=== PATIENT | female | born 1990 | race Caucasian/White ===

== ENCOUNTER → 2016-11-05 | Outpatient (CLI) | payer BC ==
--- NOTE | 2016-11-05 15:14 | CR ---
EXAMINATION: Two-view chest (PA and Lateral views). HISTORY: Cough. FINDINGS: The trachea is midline. The cardiomediastinal silhouette is within normal limits. No pulmonary infil trates, effusions or pneumothorax. Osseous structures appear unremarkable. IMPRESSION: No acute cardiopulmonary process.
== END ==
LOC: MW.CHFP 14:28
PROVIDERS: ATTEND Nurse Practitioner Family
DX: R50.9 Fever, unspecified (principal); R05 Cough
CPT/HCPCS: 36415; 71020; 71020-26; 85025; 87804

== ENCOUNTER 2021-06-10 06:33 | Day surgery (SDC) | payer BC ==
[2021-06-10] MEDS ORDERED: Ondansetron 4 MG/2 ML SDV IVPUSH PRN (07:27)
[2021-06-10] MEDS ORDERED: Naloxone 0.4 MG/ML SDV IVPUSH PRN (07:27)
[2021-06-10] MEDS ORDERED: HYDROmorphone 1 MG/ML Syringe IVPUSH PRN (07:27)
[2021-06-10] MEDS ORDERED: Morphine 2 MG/ML SYRINGE IVPUSH PRN (07:27)
[2021-06-10] MEDS ORDERED: Albuterol 0.083% 2.5 MG/3 ML Neb Soln NEB PRN (07:27)
[2021-06-10] MEDS ORDERED: Metoclopramide 10 MG/2 ML SDV IVPUSH PRN (07:27)
--- NOTE | 2021-06-10 07:32 | PCM.PREANE ---
Preanesthetic Assessment - Anesthesia/Transfusion/Family Hx Anesthesia History: Prior Anesthesia Without Reaction Other Type of Anesthesia Reaction Comment: "I wake up shaking" Family History of Anesthesia Reaction: No Transfusion History: No Prior Transfusion(s) - Review of Systems General: No Symptoms Pulmonary: No Symptoms Cardiovascular: No Symptoms Gastrointestinal: No Symptoms Neurological: Other (Back Pain) Other: Reports: None - Physical Assessment NPO Status Date: 06/10/21 NPO Status Time: 00:00 Vital Signs: Last Vital Signs Temp 98.2 F 06/10/21 06:50 Pulse 96 06/10/21 06:50 Resp 16 06/10/21 06:50 BP 138/83 06/10/21 06:50 Pulse Ox 100 06/10/21 06:50 Height: 5 ft 7.5 in Weight: 198 lb ASA Class: 2 Mental Status: Alert & Oriented x3 Airway Class: Mallampati = 2 Dentition: Reports: Normal Dentition Thyro-Mental Finger Breadths: 3 Mouth Opening Finger Breadths: 3 ROM/Head Extension: Full Lungs: Clear to Auscultation, Normal Respiratory Effort Cardiovascular: Regular Rate, Regular Rhythm - Allergies Allergies/Adverse Reactions: Allergies Allergy/AdvReac Type Severity Reaction Status Date / Time black elderberry Allergy "dehydration Uncoded 05/02/21 12:37 & weakness" - Acknowledgements Anesthesia Type Planned: General Anesthesia Pt an Appropriate Candidate for the Planned Anesthesia: Yes Alternatives and Risks of Anesthesia Discussed w Pt/Guardian: Yes Pt/Guardian Understands and Agrees with Anesthesia Plan: Yes PreAnesthesia Questionnaire - Past Health History Medical/Surgical History: Denies Medical/Surgical History HEENT History: Reports: None Cardiovascular History: Reports: None Respiratory History: Reports: None Gastrointestinal History: Reports: None Genitourinary History: Reports: None 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: Musculoskeletal History: Reports: Back Pain, Chronic Neurological History: Reports: None Psychiatric History: Reports: None Endocrine/Metabolic History: Reports: Obesity/BMI 30+ Hematologic History: Reports: None Immunologic History: Reports: None Oncologic (Cancer) History: Reports: None Dermatologic History: Reports: None - Past Surgical History Head Surgeries/Procedures: Reports: None HEENT Surgical History: Reports: None Cardiovascular Surgical History: Reports: None Respiratory Surgical History: Reports: None GI Surgical History: Reports: None Female Surgical History: Reports: None Endocrine Surgical History: Reports: None Neurological Surgical History: Reports: None Musculoskeletal Surgical History: Reports: Arthroscopic Knee Oncologic Surgical History: Reports: None Dermatological Surgical History: Reports: None - SUBSTANCE USE Tobacco Use Status *Q: Former Tobacco User Tobacco Use Within Last Twelve Months: No - HOME MEDS Home Medications: Home Meds Level Thrive 1 dose .ROUTE ASDIRECTED 05/02/21 [History] levonorgestreL [Mirena] 1 device IUTERINE ONETIME 06/04/21 [History] - CURRENT (IN HOUSE) MEDS Current Meds: Current Medications Albuterol (Albuterol 0.083% 2.5 Mg/3 Ml Neb Soln) 2.5 mg NEB ONETIME PRN PRN Reason: Wheezing Droperidol (Droperidol 5 Mg/2 Ml Sdv) 0.625 mg IVPUSH ONETIME PRN PRN Reason: Nausea/Vomiting Fentanyl (Fentanyl 100 Mcg/2 Ml Sdv) 50 mcg IVPUSH Q5M PRN PRN Reason: Pain (mild 1-3) Hydromorphone HCl (Hydromorphone 1 Mg/Ml Syringe) 1 mg IVPUSH Q10M PRN PRN Reason: Pain (moderate 4-6) Metoclopramide HCl (Metoclopramide 10 Mg/2 Ml Sdv) 10 mg IVPUSH ONETIME PRN PRN Reason: Nausea/Vomiting Morphine Sulfate (Morphine 4 Mg/Ml Vial) 2 mg IVPUSH Q10M PRN PRN Reason: Pain (severe 7-10) Naloxone HCl (Naloxone 0.4 Mg/Ml Sdv) 0.1 mg IVPUSH ASDIRECTED PRN PRN Reason: Respiratory Depression Ondansetron HCl (Ondansetron 4 Mg/2 Ml Sdv) 4 mg IVPUSH ONETIME PRN PRN Reason: Nausea/Vomiting
[2021-06-10] MEDS ORDERED: Propofol 200 MG/20 ML SDV ONE (07:40)
[2021-06-10] MEDS ORDERED: Lidocaine 2% 100 MG/5 ML Syringe ONE (07:40)
[2021-06-10] MEDS ORDERED: Dexamethasone 4 MG/ML 5 ML MDV ONE (07:40)
[2021-06-10] MEDS ORDERED: Midazolam 1 MG/ML 2 ML SDV ONE (07:41)
[2021-06-10] MEDS ORDERED: Phenylephrine 1% 10 MG/ML SDV ONE (08:24)
--- NOTE | 2021-06-10 08:56 | PCM.OPNOTE ---
- General Post-Op/Procedure Note Date of Surgery/Procedure: 06/10/21 Operative Procedure(s): Operative hysteroscopy with removal of intrauterine device and dilation and curettage Findings: Anteverted uterus sounded to 8cm. IUD within the lower uterine segment with right arm lodged into myometrium. Hypertrophic endometrium. Pre Op Diagnosis: 1. Displacement of intrauterine contraceptive device Post-Op Diagnosis: 1. Displacement of intrauterine contraceptive device Anesthesia Technique: General LMA Primary Surgeon: Tia Farmer Anesthesia Provider: Sandoval Stoner Pathology: Intrauterine contraceptive device. Endometrial curettings. Fluid Replacement, Intraop: 900 (Fluid deficit 100cc) Output, Urine Amount: 100 (straight cath prior to procedure) EBL in mLs: 10 Complications: None known Condition: Good Free Text/Narrative:: #[id number]
[2021-06-10] MEDS ORDERED: Ketorolac 30 MG/ML SDV ONE (09:09)
[2021-06-10] MEDS ORDERED: Acetaminophen 500 MG Tab PO PRN (09:09)
[2021-06-10] MEDS: fentaNYL 100 MCG/2 ML SDV IVPUSH PRN ×2 (09:13→09:20)
--- NOTE | 2021-06-10 09:13 | PCM.POSTAN ---
POST ANESTHESIA ASSESSMENT - MENTAL STATUS Mental Status: Alert, Oriented - VITAL SIGNS Vital Signs: Last Vital Signs Temp 98.6 F 06/10/21 08:49 Pulse 70 06/10/21 08:59 Resp 20 06/10/21 08:59 BP 134/79 06/10/21 08:59 Pulse Ox 99 06/10/21 08:59 - RESPIRATORY Respiratory Status: Respiratory Rate WNL, Airway Patent, O2 Saturation Stable - CARDIOVASCULAR CV Status: Pulse Rate WNL, Blood Pressure Stable - GASTROINTESTINAL GI Status: No Symptoms - POST OP HYDRATION Hydration Status: Adequate & Stable
--- NOTE | 2021-06-10 09:14 | PCM48HPAN ---
Post Anesthesia Note - EVALUATION WITHIN 48HRS OF ANESTHETIC Vital Signs in Normal Range: Yes Patient Participated in Evaluation: Yes Respiratory Function Stable: Yes Airway Patent: Yes Cardiovascular Function Stable: Yes Hydration Status Stable: Yes Pain Control Satisfactory: Yes Nausea and Vomiting Control Satisfactory: Yes Mental Status Recovered: Yes Vital Signs: Last Vital Signs Temp 98.6 F 06/10/21 08:49 Pulse 70 06/10/21 08:59 Resp 20 06/10/21 08:59 BP 134/79 06/10/21 08:59 Pulse Ox 99 06/10/21 08:59
[2021-06-10] MEDS ORDERED: Acetaminophen 1,000 MG in Premix Bag 1 BAG IV ONE (09:17)
[2021-06-10] MEDS ORDERED: Ketorolac 30 MG/ML SDV IVPUSH ONE (09:17)
[2021-06-10 10:29] VITALS: BP 112/62; PULSE 76
--- NOTE | 2021-06-10 15:26 | OR ---
SURGEON: TIA FARMER MD DATE OF PROCEDURE: 06/10/2021 PREOPERATIVE DIAGNOSIS: Displacement of intrauterine contraceptive device. POSTOPERATIVE DIAGNOSIS: Displacement of intrauterine contraceptive device. PROCEDURE: Operative hysteroscopy with removal of intrauterine device, and dilation and curettage. PRIMARY SURGEON: Tia Farmer MD ANESTHESIA: LMA. ANESTHESIOLOGIST: Sandoval Stoner CRNA COMPLICATIONS: None known. ESTIMATED BLOOD LOSS: 10 mL. IV FLUID: 900 mL of crystalloid. FLUID DEFICIT: 100 mL. URINE OUTPUT: 100 mL straight cath prior to the procedure. FINDINGS: Anteverted uterus sounded to 8 cm. Intrauterine device located within the lower uterine segment with right arm lodged into the myometrium. Hypertrophic endometrium. PATHOLOGY: 1. Intrauterine device. 2. Endometrial curettings. INDICATIONS: Patient is a 30-year-old female who initially presented to her primary care physician for removal and reinsertion of a Mirena IUD contraceptive device that she had placed approximately five years ago. Her primary care physician was unable to remove the IUD, and she was referred to [facility]. The patient desired that I also try in the clinic to remove the IUD. However, after multiple attempts, the IUD remained lodged. A transvaginal ultrasound was then performed and IUD located within the lower uterine segment with the right arm located into the myometrium. Decision then made to proceed with hysteroscopic removal. PROCEDURE IN DETAIL: Patient was taken to the operating room where LMA was introduced. She was then prepped and draped in the dorsal lithotomy position. Bimanual exam, and bladder was then drained. A time-out was then performed. An open-sided Graves speculum was then inserted into the vagina to visualize the cervix which was grasped at 12 o'clock with an Allis clamp. The uterus was then sounded to 8 cm. The cervix then dilated to 6 Hegar. The hysteroscope was then inserted into the cervix and the uterus, findings noted as above. A hysteroscopic grasper was then inserted through the hysteroscope into the uterus and the intrauterine device was grasped, however, this attempt was unsuccessful. Then, the hysteroscope was then removed. The IUD strings were visualized at the cervical os and were grasped with ring forceps, and the intrauterine device was then removed without difficulty. A sharp curettage was then performed with a medium Moran curette and specimen sent to Pathology. Bleeding was minimal, however, the cervix was quite friable and silver nitrate was applied to the 6 o'clock and 12 o'clock position of the cervix. The Allis clamp was then removed, and hemostasis was noted. Sponge, lap, and needle count were correct x2. Patient tolerated the procedure well and was sent to PACU in stable condition. KAYLA / MAURIZIO /[id number]
== END 2021-06-10 10:38 | disposition home or self-care (01) ==
LOC: MW.SDS 06:33
PROVIDERS: ATTEND Obstetrics & Gynecology
DX: T83.32XA Displacement of intrauterine contraceptive device, initial encounter (principal); E66.9 Obesity, unspecified; Z79.899 Other long term (current) drug therapy; Z98.890 Other specified postprocedural states; Z86.16 Personal history of COVID-19; Z87.891 Personal history of nicotine dependence; Z88.8 Allergy status to other drugs, medicaments and biological substances
CPT/HCPCS: 58562; J1100; J1885; J2250; J2370; J2704; J3010; 00952

== ENCOUNTER 2023-07-15 15:03 | Emergency (ER) | payer BC ==
[2023-07-15] MEDS ORDERED: Sodium Chloride 0.9% 1,000 ML IV ONE (15:15)
[2023-07-15] MEDS ORDERED: Ketorolac 30 MG/ML SDV IVPUSH ONE (15:15)
[2023-07-15 15:17] LABS: BASOPHILS ABSOLUTE AUTO 0.05 K/uL (0.00-0.20); BASOPHILS PERCENT AUTO 0.6 % (0.0-1.0); EOSINOPHILS PERCENT AUTO 1.2 % (0.0-6.0); HEMATOCRIT 38.6 % (37.0-47.0); HEMOGLOBIN 13.2 g/dL (12.0-16.0); IMMATURE GRAN ABSOLUTE AUTO 0.01 K/uL (0.00-0.05); IMMATURE GRAN PERCENT AUTO 0.1 % (0.0-0.4); LYMPHOCYTES ABSOLUTE AUTO 3.27 K/uL (1.00-4.80); LYMPHOCYTES PERCENT AUTO 37.9 % (24.0-44.0); MEAN CORPUSCULAR HEMOGLOBIN 29.7 pg (28.0-32.0); MEAN CORPUSCULAR HGB CONC 34.2 g/dL (32.0-36.0); MEAN CORPUSCULAR VOLUME 86.7 fL (83.0-99.0); MEAN PLATELET VOLUME 9.6 fL (9.4-12.3); MONOCYTES ABSOLUTE AUTO 0.52 K/uL (0.00-0.80); NEUTROPHILS ABSOLUTE AUTO 4.68 K/uL (1.80-7.70); NEUTROPHILS PERCENT AUTO 54.2 % (41.0-71.0); PLATELET COUNT,PLT 301 K/uL (150-400); RED BLOOD CELL COUNT 4.45 M/uL (4.10-5.30); WHITE BLOOD CELL COUNT,WBC 8.63 K/uL (3.9-11.3)
[2023-07-15 15:44] LABS: ALBUMIN 4.2 g/dL (3.4-5.0); BILIRUBIN TOTAL 0.3 mg/dL (0.2-1.0); CARBON DIOXIDE,CO2 26.1 mmol/L (21.0-32.0); CREATININE 0.8 mg/dL (0.6-1.0); POTASSIUM,K 3.5 mmol/L (3.5-5.1); PROTEIN TOTAL,TP 8.3 g/dL (6.4-8.2)
[2023-07-15 15:59] LABS: CORONAVIRUS COVID-19 NAA NEGATIVE (NEGATIVE); INFLUENZA A NAA NEGATIVE (NEGATIVE); INFLUENZA B NAA NEGATIVE (NEGATIVE); RESPIRATORY SYNCYTIAL VIR NAA NEGATIVE (NEGATIVE)
[2023-07-15 16:43] VITALS: BP 123/78; PULSE 62
== END 2023-07-15 16:42 | disposition home or self-care (01) ==
LOC: MW.ED 15:03
DX: M94.0 Chondrocostal junction syndrome [Tietze] (principal); E66.9 Obesity, unspecified; Z20.822 Contact with and (suspected) exposure to COVID-19; Z91.018 Allergy to other foods
CPT/HCPCS: 0241U; 36415; 71045; 80053; 84484; 85025; 93005; 96361; 96374; 99285; J1885; J7030; 93010; 99284